=== PATIENT | female | born 1955 | race Caucasian/White ===

== ENCOUNTER 2018-12-04 20:57 | Emergency (ER) | payer OTHER ==
[~2018-12-04] VITALS: Ht 154.9 cm; Wt 70.3 kg
[2018-12-04 21:44] LABS: URINE BILIRUBIN NEGATIVE (Negative); URINE BLOOD NEGATIVE (Negative); URINE CLARITY CLEAR; URINE COLOR YELLOW; URINE GLUCOSE-RANDOM* NEGATIVE (Negative); URINE KETONES NEGATIVE (Negative); URINE LEUKOCYTES-REFLEX NEGATIVE (Negative); URINE NITRITE-REFLEX NEGATIVE (Negative); URINE PROTEIN (DIPSTICK) NEGATIVE (Negative)
[2018-12-04 21:47] LABS: EOSINOPHILS 0.9 % (0.0-3.0); HEMATOCRIT 39.8 % (37.0-47.0); HEMOGLOBIN 14.1 gm/dL (12.0-15.0); LYMPHOCYTES 17.1 % (24.0-44.0); MCH 30.5 pg (26.0-34.0); MCHC 35.3 g/dL (28.0-37.0); MCV 86.5 fL (80.0-100.0); MONOCYTES 6.6 % (1.0-8.0); PLATELET COUNT 208 thou/uL (150-400); POLYS 74.4 % (36.0-66.0); RBC 4.61 mil/uL (4.20-5.00); WBC 5.4 thou/uL (4.0-11.0)
[2018-12-04 21:50] LABS: ANION GAP 6 mmol/L (7-16); BUN 7 mg/dL (7-18); CHLORIDE 91 mmol/L (98-107); CO2 28 mmol/L (21-32); CREATININE 0.7 mg/dL (0.6-1.0); GLUCOSE 107 mg/dL (74-106); POTASSIUM 3.5 mmol/L (3.5-5.1); SODIUM 125 mmol/L (136-145)
[2018-12-04 22:01] LABS: ALBUMIN 3.5 g/dL (3.4-5.0); SGOT 28 U/L (15-37); SGPT 26 U/L (30-65); TOTAL PROTEIN 7.2 g/dL (6.4-8.2); TROPONIN-I <0.06 ng/mL (<0.06)
[2018-12-04] MEDS ORDERED: AUGMENTIN 875-1 EACH PO (23:15)
[2018-12-05] VITALS: BP 122/61
--- NOTE | 2018-12-05 18:03 | EKG ---
[address] [place] [address] ELECTROCARDIOGRAM REPORT Name: FANNY FREEMAN Room #: DEP Brittany#: [id number] ������������������ Admission: 12/04/18 ������������������ Attend Phys: Discharge: 12/05/18 ������������������ Date of : 59 Report #: [id number] ����������������������������������������������������������������� [id number] THIS REPORT FOR: //name// [facility] ED Test Date: 2018-12-04 Test Time: 21:23:58 Pat Name: FANNY FREEMAN Department: Room: Gender: F Internal Communications Specialist: MAITE : 1955 Requested By: Lorraine Harrison Order Number: [id number] MD: Manolo Blandon Measurements Intervals [place] Rate: 91 P: -29 DC: 145 QRS: -21 QRSD: 99 T: -26 QT: 352 QTc: 434 Interpretive Statements Sinus rhythm Borderline left axis deviation Borderline T abnormalities, inferior leads No previous ECG available for comparison Electronically Signed On 12-05-2018 18:02:56 CDT by Manolo Blandon [email or web address] ��������������������������������������������� <ELECTRONICALLY SIGNED> ���������������������������������������� By: Manolo Blandon MD ��������������������������������������������� 12/05/18 180 22 22 MD JEREMY Kirkland
== END 2018-12-05 00:05 | disposition home or self-care (01) ==
LOC: ER 20:57
PROVIDERS: Nurse Practitioner Family
DX: J18.8 Other pneumonia, unspecified organism (principal); E87.1 Hypo-osmolality and hyponatremia; M54.2 Cervicalgia; R55 Syncope and collapse; F17.210 Nicotine dependence, cigarettes, uncomplicated; Z90.710 Acquired absence of both cervix and uterus; Z98.890 Other specified postprocedural states; Z88.5 Allergy status to narcotic agent; Z88.6 Allergy status to analgesic agent; Z88.8 Allergy status to other drugs, medicaments and biological substances

== ENCOUNTER → 2020-05-31 | Outpatient (CLI) | payer OTHER ==
[~2020-05-31] MED LIST: AUGMENTIN 875-1 EACH PO
== END ==
LOC: LAB 15:00
PROVIDERS: ATTEND Nurse Practitioner
DX: U07.1 COVID-19 (principal)